=== PATIENT | female | born 1935 | race Caucasian/White ===

== ENCOUNTER 2018-01-11 05:00 | Day surgery (SDC) | payer OTHER | END 2018-01-11 10:10 | disposition home or self-care (01) | LOC: AMB-ENDOS 05:00 | DX: D12.2 Benign neoplasm of ascending colon (principal); D12.0 Benign neoplasm of cecum; D12.3 Benign neoplasm of transverse colon ==

== ENCOUNTER 2019-03-21 06:02 | Day surgery (SDC) | payer OTHER | END 2019-03-21 11:45 | disposition home or self-care (01) | LOC: AMB-ENDOS 06:02 | DX: D12.3 Benign neoplasm of transverse colon (principal); D12.4 Benign neoplasm of descending colon; D12.8 Benign neoplasm of rectum; D12.5 Benign neoplasm of sigmoid colon; K57.30 Diverticulosis of large intestine without perforation or abscess without bleeding; Z12.11 Encounter for screening for malignant neoplasm of colon; Z12.12 Encounter for screening for malignant neoplasm of rectum ==

== ENCOUNTER 2020-04-16 07:16 | Day surgery (SDC) | payer OTHER | END 2020-04-16 12:00 | disposition home or self-care (01) | LOC: AMB-ENDOS 07:16 | PROVIDERS: ATTEND Colon & Rectal Surgery | DX: K62.89 Other specified diseases of anus and rectum (principal); K64.8 Other hemorrhoids; Z12.11 Encounter for screening for malignant neoplasm of colon; Z12.12 Encounter for screening for malignant neoplasm of rectum; Z20.822 Contact with and (suspected) exposure to COVID-19 ==

== ENCOUNTER 2021-10-28 07:07 | Day surgery (SDC) | payer OTHER | END 2021-10-28 14:35 | disposition home or self-care (01) | LOC: AMB-ENDOS 07:07 → CIR.AMB 13:45 → AMB-ENDOS 14:35 | PROVIDERS: ATTEND Colon & Rectal Surgery | DX: K63.5 Polyp of colon (principal); Z20.822 Contact with and (suspected) exposure to COVID-19; I10 Essential (primary) hypertension; Z86.010 Personal history of colon polyps ==

== ENCOUNTER → 2023-09-06 13:35 | Outpatient (CLI) | payer OTHER ==
[2023-09-06 15:07] LABS: CREATININE SERUM 0.89 mg/dL (0.55-1.02)
== END | disposition home or self-care (01) ==
LOC: LAB 13:35
PROVIDERS: ATTEND Colon & Rectal Surgery
DX: R10.32 Left lower quadrant pain (principal); K56.5 Intestinal adhesions [bands] with obstruction (postinfection); K57.32 Diverticulitis of large intestine without perforation or abscess without bleeding

== ENCOUNTER 2023-09-12 07:03 | Outpatient (CLI) | payer OTHER | END 2023-09-12 07:18 | disposition home or self-care (01) | LOC: TOM 07:03 | PROVIDERS: ATTEND Colon & Rectal Surgery | DX: R10.32 Left lower quadrant pain (principal); K57.32 Diverticulitis of large intestine without perforation or abscess without bleeding; K56.50 Intestinal adhesions [bands], unspecified as to partial versus complete obstruction | CPT/HCPCS: 74178; Q9965 ==

== ENCOUNTER 2023-09-14 08:38 | Day surgery (SDC) | payer OTHER ==
[2023-09-14] MEDS ORDERED: MIDAZOLAM HCL 2 MG/2 ML VIAL IV ONE (13:00)
[2023-09-14] MEDS ORDERED: ONDANSETRON HCL 2 MG/ML VIAL IV ONE (13:00)
[2023-09-14] MEDS ORDERED: DIPHENHYDRAMINE HCL 50 MG/ML VIAL 1ML IV ONE (13:00)
[2023-09-14] MEDS ORDERED: fentaNYL CITRATE 50 MCG/ML AMPUL IV PUSH ONE (13:00)
== END 2023-09-14 15:25 | disposition home or self-care (01) ==
LOC: AMB-ENDOS 08:38
PROVIDERS: ATTEND Colon & Rectal Surgery
DX: K52.89 Other specified noninfective gastroenteritis and colitis (principal); K57.30 Diverticulosis of large intestine without perforation or abscess without bleeding; R10.32 Left lower quadrant pain; Z88.5 Allergy status to narcotic agent